=== PATIENT | male | born 1985 | race Caucasian/White ===

== ENCOUNTER 2017-09-22 19:17 | Emergency (ER) | payer OTHER ==
[~2017-09-22] VITALS: Ht 188 cm; Wt 86.2 kg
[~2017-09-22 19:17] MED LIST: AZITHROMYCIN 2250 MG PO; BIOTIN2500 MCG PO; CIPROFLOXACIN500 M1 PO; FISH OIL 1,001000 M2 PO; GLUCOSAMINE HC500 MG PO; LITHIUM CARBON150 MG PO; PROPECIA1 MG PO; UNICOMPLEX M TA1 TA1 PO
[2017-09-22 19:58] LABS: ABSOLUTE BASOPHILS 0.1 thou/uL (0.0-0.2); ABSOLUTE EOSINOPHILS 0.5 thou/uL (0.0-0.7); ABSOLUTE LYMPHOCYTES 3.8 thou/uL (0.8-5.3); ABSOLUTE MONOCYTES 0.6 thou/uL (0.0-1.2); ABSOLUTE NEUTROPHILS 6.3 thou/uL (1.6-8.1); EOSINOPHILS 4.4 %; HEMOGLOBIN 15.5 gm/dL (14.0-18.0); LYMPHOCYTES 33.5 %; MCH 28.9 pg (26.0-34.0); MCHC 33.7 g/dL (28.0-37.0); MCV 85.7 fL (80.0-100.0); MONOCYTES 5.5 %; MPV 8.6 fl. (7.2-11.1); NUCLEATED RBCS 0 /100WBC; PLATELET COUNT* 273 thou/uL (150-400); POLYS 55.6 %; RBC 5.37 mil/uL (4.50-6.00); RDW-CV 13.7 % (10.5-14.5); WBC 11.4 thou/uL (4.0-11.0)
[2017-09-22 20:00] LABS: ANION GAP 11 mmol/L (7-16); BUN 8 mg/dL (7-18); CALCIUM 8.8 mg/dL (8.5-10.1); CHLORIDE 102 mmol/L (98-107); CO2 26 mmol/L (21-32); CREATININE 1.2 mg/dL (0.6-1.3); GLUCOSE 122 mg/dL (70-99); POTASSIUM 3.6 mmol/L (3.5-5.1); SODIUM 139 mmol/L (136-145)
[2017-09-22 20:07] LABS: ALKALINE PHOSPHATASE 63 U/L (46-116); LIPASE 103 U/L (73-393); SGOT 148 U/L (15-37); SGPT 45 U/L (30-65); TOTAL BILIRUBIN 1.3 mg/dL (<0.1-1.0); TOTAL PROTEIN 7.6 g/dL (6.4-8.2); TROPONIN-I LEVEL <0.06 ng/mL (<0.06)
[2017-09-22 20:47] VITALS: BP 128/79
--- NOTE | 2017-09-24 09:40 | EKG ---
[place] [address] ELECTROCARDIOGRAM REPORT Name: BG GUERRERO [id number] Admission: 09/22/17 Attend Phys: Discharge: 09/22/17 Date of : 85 Report #: [id number] THIS REPORT FOR: //name// [facility] ED Test Date: 2017-09-22 Test Time: 19:24:45 Pat Name: BG GUERRERO Department: Room: Gender: [employer]: SERGIO : 1985 Requested By: Viridiana Peoples Order Number: [id number] MD: Caesar Zhu Measurements Intervals [place] Rate: 90 P: 62 TX: 139 QRS: 77 QRSD: 101 T: 32 QT: 367 QTc: 449 Interpretive Statements Sinus rhythm RSR' in V1 or V2, right VCD or RVH Baseline wander in lead(s) II,III,aVL,aVF,V3 Compared to ECG 09/28/2013 09:35:24 Sinus arrhythmia no longer present Electronically Signed On 09-24-2017 9:40:20 CDT by Caesar Zhu [email or web address] <ELECTRONICALLY SIGNED> By: Caesar Zhu MD, [facility] 09/24/17 0940 192 23 Caesar Zhu MD, [facility] /EPI
== END 2017-09-22 21:23 | disposition home or self-care (01) ==
LOC: M.ERS 19:17
PROVIDERS: Emergency Medicine
DX: F41.9 Anxiety disorder, unspecified (principal); F31.9 Bipolar disorder, unspecified; F17.220 Nicotine dependence, chewing tobacco, uncomplicated; Z88.0 Allergy status to penicillin

== ENCOUNTER 2018-07-17 21:45 | Emergency (ER) | payer OTHER ==
[~2018-07-17] VITALS: Ht 188 cm; Wt 92.2 kg
[2018-07-17 22:07] LABS: ABSOLUTE BASOPHILS 0.1 thou/uL (0.0-0.2); ABSOLUTE EOSINOPHILS 0.4 thou/uL (0.0-0.7); ABSOLUTE LYMPHOCYTES 3.3 thou/uL (0.8-5.3); ABSOLUTE MONOCYTES 0.6 thou/uL (0.0-1.2); ABSOLUTE NEUTROPHILS 4.7 thou/uL (1.6-8.1); EOSINOPHILS 3.9 %; HEMATOCRIT 44.1 % (42.0-52.0); LYMPHOCYTES 36.5 %; MCH 29.5 pg (26.0-34.0); MCV 86.6 fL (80.0-100.0); MONOCYTES 6.5 %; MPV 7.9 fl. (7.2-11.1); NUCLEATED RBCS 0 /100WBC; PLATELET COUNT* 255 thou/uL (150-400); POLYS 52.1 %; RBC 5.09 mil/uL (4.50-6.00); RDW-CV 14.2 % (10.5-14.5); WBC 9.1 thou/uL (4.0-11.0)
[2018-07-17 22:08] LABS: URINE BILIRUBIN NEGATIVE (Negative); URINE BLOOD TRACE (Negative); URINE CLARITY CLEAR; URINE COLOR YELLOW; URINE GLUCOSE-RANDOM NEGATIVE (Negative); URINE KETONES NEGATIVE (Negative); URINE LEUKOCYTES-REFLEX NEGATIVE (Negative); URINE NITRITE-REFLEX NEGATIVE (Negative); URINE PROTEIN NEGATIVE (Negative); URINE SPECIFIC GRAVITY <= 1.005 (1.005-1.030); URINE UROBILINOGEN 0.2 E.U./dl (0.2-1.0)
[2018-07-17 22:15] LABS: ALBUMIN 4.1 g/dL (3.4-5.0); CALCIUM 9.1 mg/dL (8.5-10.1); CREATININE 1.2 mg/dL (0.6-1.3); POTASSIUM 3.4 mmol/L (3.5-5.1); TOTAL BILIRUBIN 0.9 mg/dL (<0.1-1.0); TOTAL PROTEIN 7.6 g/dL (6.4-8.2)
[2018-07-17 22:17] LABS: AMP/METHAMP Negative (Negative); BARBITURATES Negative (Negative); BENZODIAZEPINES Negative (Negative); COCAINE Negative (Negative); METHADONE Negative (Negative); OPIATES Negative (Negative); PCP Negative (Negative); THC Negative (Negative)
[2018-07-17 22:23] LABS: ACETAMINOPHEN < 2 ug/mL (10-30); ALCOHOL 69 mg/dL (<10); SALICYLATE < 2.8 mg/dL (2.8-20.0)
[2018-07-18 17:15] VITALS: BP 118/72
== END 2018-07-18 17:15 ==
LOC: M.ERS 21:45
PROVIDERS: Emergency Medicine
DX: R45.851 Suicidal ideations (principal); F31.9 Bipolar disorder, unspecified; F17.200 Nicotine dependence, unspecified, uncomplicated; Z88.0 Allergy status to penicillin; Z79.899 Other long term (current) drug therapy